=== PATIENT | male | born 1955 | race Two or more races ===

== ENCOUNTER 2018-09-23 13:30 | Inpatient (IN) | payer MEDICAID ==
[~2018-09-23] VITALS: Ht 170.2 cm; Wt 51.7 kg
[2018-09-23] MEDS ORDERED: SODIUM CHLORIDE 0.9% 250 ML IV ONE (14:58)
[2018-09-23 16:34] LABS: BASOPHILS % 0.8 % (0.0-2.0); EOSINOPHILS % 4.8 % (0.0-5.0); LYMPHOCYTES % 19.7 % (20.0-50.0); MEAN CORPUSCULAR HEMOGLOBIN 30.3 pg (28.0-32.0); MEAN CORPUSCULAR VOLUME 93.6 fL (80.0-94.0); MEAN PLATELET VOLUME 8.3 fl (7.4-10.4); MONOCYTES % 6.9 % (2.0-8.0); NEUTROPHILS % 67.8 % (40.0-76.0); PLATELET 228 x1000/uL (130-400); RED BLOOD CELL COUNT 2.24 mill/uL (4.7-6.1); RED CELL DISTRIBUTION WIDTH 17.6 % (11.6-14.6)
[2018-09-23 16:37] LABS: INR 1.1; PROTHROMBIN TIME 11.1 sec (9.1-11.1)
[2018-09-23 16:40] LABS: HEMOGLOBIN. 6.8 g/dL (14.0-18.0)
[2018-09-23 16:41] LABS: HEMATOCRIT. 20.9 % (42.0-52.0)
[2018-09-23 16:51] LABS: CHLORIDE 99 mEq/L (98-107)
[2018-09-23 16:56] LABS: ETHANOL BLOOD < 10 mg/dL
[2018-09-23] MEDS ORDERED: ONDANSETRON HCL 4MG/2ML INJ IV PRN (19:15)
[2018-09-23] MEDS ORDERED: BENAZEPRIL 10MG TABLET PO NR (19:15)
[2018-09-23] MEDS ORDERED: DIPHENHYDRAMINE 50MG/ML VIAL IV PRN (19:15)
[2018-09-23] MEDS ORDERED: IPRATROPIUM/ALBUTEROL 0.5-3(2.5)MG/3ML NEB INH PRN (19:15)
[2018-09-23] MEDS ORDERED: LORAZEPAM 0.5MG TABLET PO PRN (19:15)
[2018-09-23] MEDS ORDERED: HYDROCODONE/ACETAMINOPHEN 5/325MG TABLET PO PRN (19:15)
[2018-09-23] MEDS ORDERED: EPOETIN ALFA 4000UNITS/ML VIAL SUBCUT NR (20:00)
[2018-09-23] MEDS: CLONIDINE 0.1MG TABLET PO PRN (22:03)
[2018-09-23 22:45] VITALS: BP 158/80
[2018-09-23 23:30] VITALS: BP 158/80
[2018-09-24] MEDS: AZITHROMYCIN 500 MG TABLET PO SCH ×2 (00:39→20:53)
[2018-09-24 04:00] VITALS: BP 168/83
[2018-09-24] MEDS ORDERED: DEXTROSE 50% WATER 50ML SYRINGE IV PRN (04:45)
[2018-09-24] MEDS ORDERED: LOPHC2 MT (06:02)
[2018-09-24] MEDS ORDERED: METO5AMP3 PO (06:02)
[2018-09-24] MEDS ORDERED: FAMO-135 PO (06:02)
[2018-09-24] MEDS ORDERED: HYDR-4001 PO (06:02)
[2018-09-24] MEDS ORDERED: KEPP500 PO (06:02)
[2018-09-24] MEDS ORDERED: ATOR20TA PO (06:02)
[2018-09-24] MEDS ORDERED: AMLO10TA80 PO (06:02)
[2018-09-24] MEDS ORDERED: CLOP75TA33 PO (06:02)
[2018-09-24] MEDS ORDERED: SODI325T PO (06:02)
[2018-09-24] MEDS ORDERED: INSU100I28 SQ (06:02)
[2018-09-24] MEDS ORDERED: ISOS20TA57 PO (06:02)
[2018-09-24] MEDS ORDERED: HYDR-4134 PO (06:02)
[2018-09-24] MEDS ORDERED: ASPI-1158 PO (06:02)
[2018-09-24] MEDS ORDERED: FERR325T6 PO (06:03)
[2018-09-24 07:01] LABS: BASOPHILS % 0.7 % (0.0-2.0); EOSINOPHILS % 4.5 % (0.0-5.0); HEMATOCRIT. 23.8 % (42.0-52.0); LYMPHOCYTES % 16.3 % (20.0-50.0); MEAN CORPUSCULAR HEMOGLOBIN 30.8 pg (28.0-32.0); MEAN CORPUSCULAR VOLUME 93.3 fL (80.0-94.0); MEAN PLATELET VOLUME 8.4 fl (7.4-10.4); MONOCYTES % 7.4 % (2.0-8.0); NEUTROPHILS % 71.1 % (40.0-76.0); PLATELET 206 x1000/uL (130-400); RED BLOOD CELL COUNT 2.55 mill/uL (4.7-6.1); RED CELL DISTRIBUTION WIDTH 16.9 % (11.6-14.6)
[2018-09-24] MEDS: BLOOD SUGAR DIAGNOSTIC STRIP TEST SCH ×4 (07:10→20:54)
[2018-09-24] MEDS: INSULIN LISPRO 100 UNITS/ML SUBCUT SCH ×4 (07:17→20:54)
[2018-09-24 07:19] LABS: HEMOGLOBIN. 7.9 g/dL (14.0-18.0)
[2018-09-24 07:56] LABS: PHOSPHORUS 1.7 mg/dL (2.5-4.9)
[2018-09-24 08:44] VITALS: BP 147/69
[2018-09-24] MEDS: BENAZEPRIL 10MG TABLET PO SCH ×2 (09:13→20:53)
[2018-09-24 12:00] VITALS: BP 139/66
[2018-09-24] MEDS ORDERED: AZITHROMYCIN 500 MG TABLET PO SCH (13:00)
[2018-09-24] MEDS ORDERED: TUBERCULIN,PURIF.PROT.DERIV. 5 TU/0.1 ML SYR ID ONE (14:00)
[2018-09-24] MEDS: ASPIRIN 81MG TABLET PO SCH (15:08)
[2018-09-24] MEDS: TAMSULOSIN HCL 0.4MG SR CAPSULE PO SCH (15:08)
[2018-09-24] MEDS: LEVETIRACETAM 500MG TABLET PO SCH (15:08)
[2018-09-24] MEDS: CLOPIDOGREL 75MG TABLET PO SCH (15:08)
[2018-09-24] MEDS: POLYETHYLENE GLYCOL 3350 (17GM) 1 DOSE PACK PO SCH (15:08)
[2018-09-24] MEDS ORDERED: INFLUENZA VIRUS VACCINE(AFLURIA) 0.5ML SYR IM ONE (15:15)
[2018-09-24] MEDS ORDERED: PNEUMOCOCCAL 23-VAL P-SAC VAC 0.5 ML IM ONE (15:15)
[2018-09-24 16:37] VITALS: BP 168/86
[2018-09-24 18:17] LABS: TOTAL IRON BINDING CAPACITY 177 ug/dL (250-450)
[2018-09-24 18:32] LABS: FOLIC ACID (FOLATE) SERUM 2.9 ng/mL (>5.38)
[2018-09-24 18:43] LABS: PROSTRATE SPECIFIC AG TOTAL 0.07 ng/mL (0.0-4.0)
[2018-09-24 20:00] VITALS: BP 167/80
[2018-09-24] MEDS: ATORVASTATIN CALCIUM 20MG TABLET PO SCH (20:53)
[2018-09-24] MEDS: INSULIN GLARGINE UD 100 UNITS/ML SYR SUBCUT SCH (21:38)
[2018-09-24] MEDS: ACETAMINOPHEN 325MG TABLET PO PRN (22:38)
[2018-09-25] VITALS: BP 146/74
[2018-09-25 04:00] VITALS: BP_SYST 186; BP_SYST 193; BP_DIAS 80; BP_DIAS 90
[2018-09-25] MEDS: CLONIDINE 0.1MG TABLET PO PRN (05:19)
[2018-09-25] MEDS: BLOOD SUGAR DIAGNOSTIC STRIP TEST SCH ×4 (06:06→21:00)
[2018-09-25] MEDS: INSULIN LISPRO 100 UNITS/ML SUBCUT SCH ×4 (06:25→22:52)
[2018-09-25 08:00] VITALS: BP 176/86
[2018-09-25] MEDS: CLOPIDOGREL 75MG TABLET PO SCH (09:16)
[2018-09-25] MEDS: LEVETIRACETAM 500MG TABLET PO SCH (09:16)
[2018-09-25] MEDS: POLYETHYLENE GLYCOL 3350 (17GM) 1 DOSE PACK PO SCH (09:17)
[2018-09-25] MEDS: TAMSULOSIN HCL 0.4MG SR CAPSULE PO SCH (09:17)
[2018-09-25] MEDS: BENAZEPRIL 10MG TABLET PO SCH ×2 (09:17→22:37)
[2018-09-25] MEDS: ASPIRIN 81MG TABLET PO SCH (09:17)
[2018-09-25 11:09] LABS: BASOPHILS % 0.6 % (0.0-2.0); EOSINOPHILS % 3.7 % (0.0-5.0); HEMATOCRIT. 23.4 % (42.0-52.0); HEMOGLOBIN. 7.6 g/dL (14.0-18.0); LYMPHOCYTES % 16.5 % (20.0-50.0); MEAN CORPUSCULAR HEMOGLOBIN 30.5 pg (28.0-32.0); MEAN CORPUSCULAR VOLUME 94.4 fL (80.0-94.0); MEAN PLATELET VOLUME 8.6 fl (7.4-10.4); MONOCYTES % 7.6 % (2.0-8.0); NEUTROPHILS % 71.6 % (40.0-76.0); PLATELET 202 x1000/uL (130-400); RED BLOOD CELL COUNT 2.48 mill/uL (4.7-6.1); RED CELL DISTRIBUTION WIDTH 16.5 % (11.6-14.6)
[2018-09-25 12:00] VITALS: BP 147/72
[2018-09-25 16:00] VITALS: BP 136/68
[2018-09-25] MEDS: FOLIC ACID 1MG TABLET PO SCH (18:13)
[2018-09-25 20:00] VITALS: BP 140/69
[2018-09-25] MEDS: AZITHROMYCIN 500 MG TABLET PO SCH (22:37)
[2018-09-25] MEDS: ATORVASTATIN CALCIUM 20MG TABLET PO SCH (22:38)
[2018-09-25] MEDS: INSULIN GLARGINE UD 100 UNITS/ML SYR SUBCUT SCH (22:51)
[2018-09-26] VITALS (13 sets, daily range): BP systolic 86–157; BP diastolic 46–90
[2018-09-26] MEDS: ACETAMINOPHEN 325MG TABLET PO PRN (03:49)
[2018-09-26] MEDS: INSULIN LISPRO 100 UNITS/ML SUBCUT SCH ×4 (07:40→20:36)
[2018-09-26] MEDS: BLOOD SUGAR DIAGNOSTIC STRIP TEST SCH ×4 (07:48→20:36)
[2018-09-26 07:53] LABS: BASOPHILS % 0.6 % (0.0-2.0); EOSINOPHILS % 3.3 % (0.0-5.0); HEMATOCRIT. 21.7 % (42.0-52.0); LYMPHOCYTES % 14.6 % (20.0-50.0); MEAN CORPUSCULAR HEMOGLOBIN 30.6 pg (28.0-32.0); MEAN CORPUSCULAR VOLUME 94.6 fL (80.0-94.0); MEAN PLATELET VOLUME 8.6 fl (7.4-10.4); MONOCYTES % 7.2 % (2.0-8.0); NEUTROPHILS % 74.3 % (40.0-76.0); PLATELET 200 x1000/uL (130-400); RED BLOOD CELL COUNT 2.29 mill/uL (4.7-6.1); RED CELL DISTRIBUTION WIDTH 16.4 % (11.6-14.6)
[2018-09-26] MEDS: TAMSULOSIN HCL 0.4MG SR CAPSULE PO SCH (10:13)
[2018-09-26] MEDS: CLOPIDOGREL 75MG TABLET PO SCH (10:13)
[2018-09-26] MEDS: FOLIC ACID 1MG TABLET PO SCH (10:13)
[2018-09-26] MEDS: ASPIRIN 81MG TABLET PO SCH (10:14)
[2018-09-26] MEDS: BENAZEPRIL 10MG TABLET PO SCH ×2 (10:14→21:55)
[2018-09-26] MEDS: LEVETIRACETAM 500MG TABLET PO SCH (10:14)
[2018-09-26] MEDS: FUROSEMIDE 40MG TABLET PO SCH (10:14)
[2018-09-26] MEDS: POLYETHYLENE GLYCOL 3350 (17GM) 1 DOSE PACK PO SCH (10:14)
[2018-09-26] MEDS: NYSTATIN POWDER 15GM TOP SCH ×2 (10:18→18:21)
[2018-09-26] MEDS ORDERED: HEPATITIS B VIRUS VACCINE-PF 10 MCG/0.5 VIAL IM NR (13:00)
[2018-09-26 20:41] LABS: BASOPHILS % 0.5 % (0.0-2.0); EOSINOPHILS % 2.1 % (0.0-5.0); HEMATOCRIT. 27.4 % (42.0-52.0); HEMOGLOBIN. 9.3 g/dL (14.0-18.0); LYMPHOCYTES % 12.5 % (20.0-50.0); MEAN CORPUSCULAR HEMOGLOBIN 30.9 pg (28.0-32.0); MEAN CORPUSCULAR VOLUME 90.9 fL (80.0-94.0); MEAN PLATELET VOLUME 8.4 fl (7.4-10.4); MONOCYTES % 7.1 % (2.0-8.0); NEUTROPHILS % 77.8 % (40.0-76.0); PLATELET 160 x1000/uL (130-400); RED BLOOD CELL COUNT 3.02 mill/uL (4.7-6.1); RED CELL DISTRIBUTION WIDTH 14.8 % (11.6-14.6)
[2018-09-26] MEDS ORDERED: EPOETIN ALFA 4000UNITS/ML VIAL SUBCUT SCH (21:00)
[2018-09-26] MEDS: AZITHROMYCIN 500 MG TABLET PO SCH (21:55)
[2018-09-26] MEDS: ATORVASTATIN CALCIUM 20MG TABLET PO SCH (21:55)
[2018-09-26] MEDS: IRON SUCROSE COMPLEX 100 MG/5 ML ML IV SCH (21:56)
[2018-09-26] MEDS: INSULIN GLARGINE UD 100 UNITS/ML SYR SUBCUT SCH (22:10)
[2018-09-27] VITALS: BP 131/65
[2018-09-27 04:00] VITALS: BP 149/75
[2018-09-27] MEDS: INSULIN LISPRO 100 UNITS/ML SUBCUT SCH ×4 (06:38→21:00)
[2018-09-27] MEDS: BLOOD SUGAR DIAGNOSTIC STRIP TEST SCH ×4 (06:38→21:00)
[2018-09-27] MEDS: FOLIC ACID 1MG TABLET PO SCH (07:55)
[2018-09-27] MEDS: ASPIRIN 81MG TABLET PO SCH (07:55)
[2018-09-27] MEDS: TAMSULOSIN HCL 0.4MG SR CAPSULE PO SCH (07:55)
[2018-09-27] MEDS: BENAZEPRIL 10MG TABLET PO SCH ×2 (07:56→21:14)
[2018-09-27] MEDS: FUROSEMIDE 40MG TABLET PO SCH (07:56)
[2018-09-27] MEDS: CLOPIDOGREL 75MG TABLET PO SCH (07:56)
[2018-09-27] MEDS: POLYETHYLENE GLYCOL 3350 (17GM) 1 DOSE PACK PO SCH (07:56)
[2018-09-27 08:00] VITALS: BP 155/77
[2018-09-27] MEDS: LEVETIRACETAM 500MG TABLET PO SCH (09:00)
[2018-09-27] MEDS: NYSTATIN POWDER 15GM TOP SCH ×2 (09:00→17:02)
[2018-09-27] MEDS: IRON SUCROSE COMPLEX 100 MG/5 ML ML IV SCH (09:04)
[2018-09-27] MEDS ORDERED: THROMBIN (BOVINE) 5000 UNITS/VIAL TOP ONE (10:15)
[2018-09-27] MEDS ORDERED: GELATIN SPONGE,ABSORBABLE 12-7MM SPONGE ONE (10:15)
[2018-09-27] MEDS ORDERED: LIDOCAINE HCL 1% 20ML VIAL (Pyxis) INJ ONE (10:15)
[2018-09-27] MEDS ORDERED: BACITRACIN 15GM TUBE TOP ONE (10:15)
[2018-09-27] MEDS ORDERED: BACITRACIN 50,000 UNITS/VIAL ONE (10:16)
[2018-09-27] MEDS ORDERED: SODIUM CHLORIDE 0.9% 1,000 ML ONE (10:16)
[2018-09-27] MEDS ORDERED: SODIUM CHLORIDE 0.9% IRRIG SOL 1,000 ML IR ONE (10:16)
[2018-09-27] MEDS ORDERED: NORMAL SALINE 0.9% 10 ML SYR ONE (10:16)
[2018-09-27] MEDS ORDERED: BUPIVACAINE HCL/PF 0.5% (5MG/ML) 10ML ONE (10:16)
[2018-09-27] MEDS ORDERED: PAPAVERINE HCL 30 MG/ML 2ML IV ONE (10:18)
[2018-09-27] MEDS ORDERED: HEPARIN SODIUM 1,000 UNIT/1ML VIAL IV ONE (10:18)
[2018-09-27 10:53] LABS: BASOPHILS % 0.8 % (0.0-2.0); EOSINOPHILS % 2.4 % (0.0-5.0); MEAN CORPUSCULAR HEMOGLOBIN 31.2 pg (28.0-32.0); MEAN CORPUSCULAR VOLUME 91.4 fL (80.0-94.0); MEAN PLATELET VOLUME 8.4 fl (7.4-10.4); MONOCYTES % 8.1 % (2.0-8.0); NEUTROPHILS % 65.7 % (40.0-76.0); PLATELET 151 x1000/uL (130-400); RED BLOOD CELL COUNT 2.56 mill/uL (4.7-6.1); RED CELL DISTRIBUTION WIDTH 15.6 % (11.6-14.6)
[2018-09-27 10:58] LABS: HEMATOCRIT. 23.4 % (42.0-52.0)
[2018-09-27] MEDS ORDERED: HYDROCODONE/ACETAMINOPHEN 5/325MG TABLET PO PRN (12:30)
[2018-09-27] MEDS ORDERED: PHENYLEPHRINE HCL 10 MG/ML 1ML (IV VIAL) IV ONE (12:45)
[2018-09-27] MEDS ORDERED: DEXAMETHASONE 4MG/ML 1ML VIAL ONE (12:45)
[2018-09-27] MEDS ORDERED: SODIUM CHLORIDE 0.9% 10ML VIAL ONE (12:46)
[2018-09-27] MEDS ORDERED: CEFAZOLIN SODIUM 1000MG/VIAL ONE (12:46)
[2018-09-27] MEDS ORDERED: HEPARIN 1000 UNITS/ML 10ML ONE (13:24)
[2018-09-27 16:00] VITALS: BP 112/76
[2018-09-27 20:00] VITALS: BP 118/62
[2018-09-27] MEDS: AZITHROMYCIN 500 MG TABLET PO SCH (21:14)
[2018-09-27] MEDS: ATORVASTATIN CALCIUM 20MG TABLET PO SCH (21:14)
[2018-09-27] MEDS: INSULIN GLARGINE UD 100 UNITS/ML SYR SUBCUT SCH (21:26)
[2018-09-28] VITALS (7 sets, daily range): BP systolic 118–149; BP diastolic 23–75
[2018-09-28] MEDS: INSULIN LISPRO 100 UNITS/ML SUBCUT SCH ×4 (06:19→21:00)
[2018-09-28] MEDS: BLOOD SUGAR DIAGNOSTIC STRIP TEST SCH ×4 (06:29→21:16)
[2018-09-28 07:23] LABS: BASOPHILS % 0.2 % (0.0-2.0); EOSINOPHILS % 0.1 % (0.0-5.0); HEMATOCRIT. 22.3 % (42.0-52.0); HEMOGLOBIN. 7.5 g/dL (14.0-18.0); LYMPHOCYTES % 10.8 % (20.0-50.0); MEAN CORPUSCULAR HEMOGLOBIN 31.4 pg (28.0-32.0); MEAN CORPUSCULAR VOLUME 93.3 fL (80.0-94.0); MEAN PLATELET VOLUME 9.2 fl (7.4-10.4); NEUTROPHILS % 79.9 % (40.0-76.0); PLATELET 175 x1000/uL (130-400); RED BLOOD CELL COUNT 2.39 mill/uL (4.7-6.1); RED CELL DISTRIBUTION WIDTH 15.5 % (11.6-14.6)
[2018-09-28] MEDS: POLYETHYLENE GLYCOL 3350 (17GM) 1 DOSE PACK PO SCH (09:00)
[2018-09-28] MEDS: IRON SUCROSE COMPLEX 100 MG/5 ML ML IV SCH (10:07)
[2018-09-28] MEDS: CLOPIDOGREL 75MG TABLET PO SCH (10:07)
[2018-09-28] MEDS: TAMSULOSIN HCL 0.4MG SR CAPSULE PO SCH (10:07)
[2018-09-28] MEDS: LEVETIRACETAM 500MG TABLET PO SCH (10:07)
[2018-09-28] MEDS: ASPIRIN 81MG TABLET PO SCH (10:07)
[2018-09-28] MEDS: BENAZEPRIL 10MG TABLET PO SCH ×2 (10:08→20:27)
[2018-09-28] MEDS: NYSTATIN POWDER 15GM TOP SCH ×2 (10:08→18:24)
[2018-09-28] MEDS: FOLIC ACID 1MG TABLET PO SCH (10:08)
[2018-09-28] MEDS: FUROSEMIDE 40MG TABLET PO SCH (10:08)
[2018-09-28] MEDS ORDERED: TAMS-11 PO (15:43)
[2018-09-28] MEDS ORDERED: POLY17PO3 PO (15:43)
[2018-09-28] MEDS ORDERED: FURO40TA5 PO (15:43)
[2018-09-28] MEDS ORDERED: LOT10 PO (15:43)
[2018-09-28] MEDS ORDERED: FOLI-43 PO (15:43)
[2018-09-28] MEDS ORDERED: TUBERCULIN,PURIF.PROT.DERIV. 5 TU/0.1 ML SYR ID ONE (17:00)
[2018-09-28] MEDS ORDERED: INFLUENZA VIRUS VACCINE(AFLURIA) 0.5ML SYR IM ONE (17:00)
[2018-09-28] MEDS ORDERED: EPOETIN ALFA 4000UNITS/ML VIAL SUBCUT NR (18:00)
[2018-09-28] MEDS: ATORVASTATIN CALCIUM 20MG TABLET PO SCH (20:26)
[2018-09-28] MEDS: AZITHROMYCIN 500 MG TABLET PO SCH (20:26)
== END 2018-09-28 21:45 | DRG 951 ==
LOC: ER 13:30 → 8WST 17:48 → EDBEDREQ 17:54 → ENRESERV 21:28
PROVIDERS: ADMIT Internal Medicine; ATTEND Internal Medicine
PROC: 30233N1 Transfusion of Nonautologous Red Blood Cells into Peripheral Vein, Percutaneous Approach (ICD-10-PCS; 2018-09-23)
PROC: 0KBN0ZZ Excision of Right Hip Muscle, Open Approach (ICD-10-PCS; principal; 2018-09-25)
PROC: 5A1D70Z Performance of Urinary Filtration, Intermittent, Less than 6 Hours Per Day (ICD-10-PCS; 2018-09-26)
PROC: 03180ZD Bypass Left Brachial Artery to Upper Arm Vein, Open Approach (ICD-10-PCS; 2018-09-27)
PROC: 5A1D70Z Performance of Urinary Filtration, Intermittent, Less than 6 Hours Per Day (ICD-10-PCS; 2018-09-28)
DX: J18.9 Pneumonia, unspecified organism (principal); E43 Unspecified severe protein-calorie malnutrition; I13.2 Hypertensive heart and chronic kidney disease with heart failure and with stage 5 chronic kidney disease, or end stage renal disease; L89.214 Pressure ulcer of right hip, stage 4; E11.22 Type 2 diabetes mellitus with diabetic chronic kidney disease; E11.52 Type 2 diabetes mellitus with diabetic peripheral angiopathy with gangrene; J44.0 Chronic obstructive pulmonary disease with (acute) lower respiratory infection; K92.2 Gastrointestinal hemorrhage, unspecified; I16.0 Hypertensive urgency; E11.621 Type 2 diabetes mellitus with foot ulcer; N18.6 End stage renal disease; I45.81 Long QT syndrome; I50.9 Heart failure, unspecified; L97.529 Non-pressure chronic ulcer of other part of left foot with unspecified severity; Z99.2 Dependence on renal dialysis; D63.1 Anemia in chronic kidney disease; E11.69 Type 2 diabetes mellitus with other specified complication; E78.5 Hyperlipidemia, unspecified; N40.0 Benign prostatic hyperplasia without lower urinary tract symptoms; E53.8 Deficiency of other specified B group vitamins; J98.11 Atelectasis; D64.9 Anemia, unspecified; G40.909 Epilepsy, unspecified, not intractable, without status epilepticus; Z79.4 Long term (current) use of insulin; Z79.82 Long term (current) use of aspirin; F03.90 Unspecified dementia, unspecified severity, without behavioral disturbance, psychotic disturbance, mood disturbance, and anxiety; K59.00 Constipation, unspecified; Z68.1 Body mass index [BMI] 19.9 or less, adult
CPT/HCPCS: 36415; 36430; 71045; 73630; 73660; 80048; 80061; 82270; 82607; 82728; 82746; 82962; 83036; 83540; 83550; 83605; 83735; 83880; 84100; 84134; 84145; 84153; 84443; 84484; 85044; 86706; 86850; 86900; 86920; 87517; 90585; 90686; 90732; 90743; 93005; 93306; 93970; 96360; 99285; A6261; C1893; G0482; J0690; J0885; J1100; J1644; J1815; J2370; J2440; J3490; J7030; J7040; J7042; J7050; P9016; G0103